=== PATIENT | female | born 1945 | race Caucasian/White ===

== ENCOUNTER 2020-03-11 16:56 | Emergency (ER) | payer MEDICARE, OTHER ==
[~2020-03-11] VITALS: Ht 162.6 cm; Wt 68.1 kg
--- NOTE | 2020-03-11 17:39 | NUR ---
first contact with pt. pt c/o bladder pain, urenary frequency, and foul odor for 7-10 days. pt has hx of cystitis. pt stated "i'm sure i have uti." pt denies any other sx. pt's aox4. resps even and unlabored. pt refused to change.
[2020-03-11 17:59] LABS: MICROSCOPIC INDICATED
[2020-03-11] MEDS ORDERED: CEFDINIR 300 MG CAPSULE ONE (18:17)
[2020-03-11 18:20] VITALS: BP 116/66
--- NOTE | 2020-03-11 18:20 | NUR ---
PT MEDICATED PER EMAR. PT TOLERATED WELL.
[2020-03-11] MEDS ORDERED: CEFDINIR 300 MG CAPSULE PO ONE (18:30)
--- NOTE | 2020-03-11 18:33 | NUR ---
Patient given discharge instructions and they have confirmed that they understand the instructions. Patient ambulatory with steady gait.
== END 2020-03-11 18:34 | disposition home or self-care (01) ==
LOC: ED 17:50
DX: N30.00 Acute cystitis without hematuria (principal)
CPT/HCPCS: 81001; 87077; 87086; 87186; 99283